=== PATIENT | female | born 1980 | race Caucasian/White ===

== ENCOUNTER 2020-01-14 13:39 | Emergency (ER) | payer SELFPAY ==
[~2020-01-14] VITALS: Ht 157.5 cm; Wt 90.7 kg
[2020-01-14 15:19] VITALS: BP 137/91; Ht 157.5 cm; Wt 90.7 kg
== END 2020-01-14 15:45 | disposition home or self-care (01) ==
LOC: ED 13:39
DX: U07.1 COVID-19 (principal); H57.89 Other specified disorders of eye and adnexa
CPT/HCPCS: U0003-CS